=== PATIENT | female | born 1970 | race Caucasian/White ===

== ENCOUNTER 2019-03-28 23:12 | Inpatient (IN) ==
[2019-03-28] MEDS ORDERED: 0.9 % Sodium Chloride 1,000 ML IVC ONE (23:48)
[2019-03-29 00:26] LABS: Bilirubin,Urine Small (Negative); Blood,Urine Large (Negative); Clarity,Urine Clear (Clear); Color,Urine Yellow (Yellow); Glucose,Urine (UA) Normal (Normal); Ketones,Urine Trace mg/dL (Negative); Leukocyte Esterase,Urine Small (Negative); Nitrite,Urine Negative (Negative); PH,Urine 5.5 pH Units (5.0-8.0); Protein,Urine 100 mg/dL (Neg-Trace); Specific Gravity,Urine >= 1.030 (1.010-1.025); Urobilinogen,Urine Normal (Normal)
[2019-03-29 00:44] LABS: Bacteria,Urine Many per hpf (None-Few); Calcium Oxalate Crystals,Urine Present; Mucus,Urine Few (Few); Squamous Epithelial Cell,Urine Many per lpf (None-Few); WBC,Urine 15-30 per hpf (0-3)
[2019-03-29] MEDS ORDERED: cefTRIAXone 1,000 MG in Water for inj. (sterile) 10 ML IVP ONE (00:48)
[2019-03-29 01:22] LABS: Basophils # 0.1 K/mcL (0.0-0.2); Basophils % 0.5 %; Eosinophils % 0.1 %; Hematocrit 44.2 % (35.3-44.9); Hemoglobin 14.3 g/dL (11.5-15.4); Immature Granulocytes % 0.7 % (0-4); Lymphocytes # 1.2 K/mcL (0.6-4.6); Lymphocytes % 12.3 %; Mean Corpuscular HGB Conc 32.4 g/dL (31.6-35.5); Mean Corpuscular Hemoglobin 28.5 pg (28.0-33.3); Mean Corpuscular Volume 88.2 fL (83.0-100.0); Mean Platelet Volume 12.3 fL (9.4-12.4); Monocytes # 1.6 K/mcL (0.0-1.3); Monocytes % 16.5 %; Neutrophils # 6.5 K/mcL (1.6-8.9); Platelet Count 262 K/mcL (140-400); Red Blood Count 5.01 M/mcL (3.82-4.97); Red Cell Distribution Width 16.6 % (11.5-14.5); Segmented Neutrophils % 69.9 %; White Blood Count 9.4 K/mcL (4.3-11.1)
[2019-03-29] MEDS ORDERED: Ipratropium/Albuterol Neb 3 ML IH ONE (02:00)
[2019-03-29 02:47] LABS: Alanine Aminotransferase 24 Units/L (7-52); Albumin/Globulin Ratio 1.3 (1.1-2.2); Alkaline Phosphatase 105 Units/L (34-104); Aspartate Amino Transferase 34 Units/L (13-39); BUN/Creatinine Ratio 16 (6-26); Bilirubin,Total 0.4 mg/dL (0.3-1.0); Blood Urea Nitrogen 16 mg/dL (6-20); Calcium 9.1 mg/dL (8.6-10.3); Carbon Dioxide 29 mEq/L (23-29); Chloride 101 mEq/L (98-107); Globulin 3.1 g/dL (2.4-3.5); Glucose 122 mg/dL (70-105); Osmolality,Calculated 284 (280-300); Potassium 3.2 mEq/L (3.5-5.1); Sodium 136 mEq/L (136-145); Total Protein 7.1 g/dL (6.4-8.9); eGFR For African Americans > 60 (> 60); eGFR For Non-African Americans 57 (> 60)
[2019-03-29] MEDS ORDERED: Azithromycin 500 MG in D5% in Water 250 ML IVPB ONE (03:05)
--- NOTE | 2019-03-29 03:21 | Emergency Department Note ---
Disposition Clinical Impression: UTI (urinary tract infection) Qualifiers: Urinary tract infection type: acute cystitis Hematuria presence: with hematuria Qualified Code(s): N30.01 - Acute cystitis with hematuria Pneumonia Qualifiers: Pneumonia type: due to unspecified organism Laterality: bilateral Lung location: lower lobe of lung Qualified Code(s): J18.1 - Lobar pneumonia, unspecified organism Disposition: Admitted As Inpatient Condition: Good Time of Disposition: 03:30 Fever HPI - General Chief Complaint: ED Extremity Problem,Nontraumatic Stated Complaint: weakness Time Seen by Provider: 03/28/19 23:17 Source: patient, family Mode of arrival: wheelchair Limitations: no limitations Nursing Notes Reviewed: Yes Vital Signs Reviewed: Yes - History of Present Illness HPI Narrative: 48-year-old female presents here with complaints of increased weakness. Patient has history of CVA with left-sided weakness. Patient uses a cane to walk. Patient reports with past 2 days since had a sore throat and dysuria. Patient was seen at [facility] urgent [facility] and diagnosed with strep throat and UTI. Patient was placed on Keflex. Patient did not have a strep culture. The patient would not tell failure and went home and had increased weakness. Patient slammed her chair to the floor due to the weakness. There is no loss of consciousness there is no confusion. Family had a difficult time getting her up. Patient has not had a fever up until the point of arrival in the emergency room. Presently patient reports she has a sore throat, cough with congestion. Patient denies any nausea vomiting. Patient denies any abdominal pain. Pt Subjective Complaint: fever, weakness Onset (ago): Just [employer] Temperature Source: subjective Associated symptoms: Reports: sore throat, cough, dysuria. Denies: rhinorrhea, nasal congestion, abdominal pain, nausea, vomiting Improves with: nothing Worsens with: exertion Treatments prior to arrival fever: antibiotics, other healthcare encounter for this problem - Related Data Home Medications Medication Instructions Recorded Confirmed Albuterol Sulfate [Proair Hfa] 2 puff IH Q4H PRN 05/29/16 03/29/19 Buspirone HCl [Buspar] 10 mg PO TID PRN 05/29/16 03/29/19 Calc/D3/Mag/Zn/[place] 1 tab PO DAILY 05/29/16 03/29/19 [Calcium 600 mg Plus Vit D Tab] Cholecalciferol (Vitamin D3) 1,000 unit PO DAILY 05/29/16 03/29/19 [Vitamin D3] Levothyroxine [Synthroid] 112 mcg PO DAILY 05/29/16 03/29/19 Loratadine [Claritin] 10 mg PO DAILY 05/29/16 03/29/19 Multivitamin [Multivitamins] 1 tab PO DAILY 05/29/16 03/29/19 Nortriptyline HCl 50 mg PO DAILY 05/29/16 03/29/19 Pregabalin [Lyrica] 200 mg PO BID 05/29/16 03/29/19 TraZODone 50 mg PO HS 05/29/16 03/29/19 Aspirin 81 mg PO DAILY 06/14/16 03/29/19 Atorvastatin [Lipitor] 40 mg PO HS 06/14/16 03/29/19 Dabigatran [Pradaxa] 150 mg PO BID 06/14/16 03/29/19 Esomeprazole Magnesium [Nexium] 20 mg PO DAILY 08/31/16 03/29/19 Allergies Allergy/AdvReac Type Severity Reaction Status Date / Time acetaminophen [From Percocet] Allergy See Verified 03/29/19 00:34 Comments latex Allergy See Verified 03/29/19 00:34 Comments oxycodone [From Percocet] Allergy See Verified 03/29/19 00:34 Comments Penicillins Allergy Itching Verified 03/29/19 00:34 adhesive tape AdvReac Rash Verified 03/29/19 04:11 All systems ED: reviewed and negative except as stated. Review of Systems: As Per HPI Constitutional: Reports: fever, chills, weakness ENT ED: Reports: throat pain. Denies: ear pain, congestion Cardiovascular: Denies: chest pain, palpitations Respiratory: Reports: cough, wheezes. Denies: dyspnea Gastrointestinal: Denies: abdominal pain, nausea, vomiting Genitourinary: Reports: urgency, dysuria Musculoskeletal: Denies: back pain, neck pain Integumentary: Denies: rash Neurological: Reports: weakness. Denies: headache, numbness, paresthesias Psychiatric: Denies: anxiety Endocrine: Reports: fatigue Hematological/Lymphatic: Denies: easy bleeding, easy bruising Fever PMH - Past Medical History Medical history: Reports: asthma, cancer, coronary artery disease, CVA, DVT, hyperlipidemia, thyroid disease, TIA, other Surgical history: Reports: hip replacement, splenectomy, other Psychiatric history: Reports: anxiety, depression [employer] history: Reports: no [employer] history LMP comments: post menopausal - Social History Smoking Status: Never smoker Alcohol use: Reports: rarely Drug use: Reports: none Physical Exam - General Limitations: no limitations General appearance: alert, in no apparent distress - Eye Eye exam: Present: PERRL, EOMI, conjunctival injection - ENT ENT exam: mucous membranes dry, TM's normal bilaterally - Expanded ENT Exam Nose exam: rhinorrhea Mouth exam: Present: normal external inspection Teeth exam: Present: normal inspection Throat exam: Present: tonsillar erythema. Absent: tonsillomegaly, tonsillar exudate - Neck Neck exam: Present: normal inspection, full ROM. Absent: lymphadenopathy - Chest Chest inspection: Present: normal inspection, symmetric chest wall rise - Expanded Respiratory Exam Location: wheezes: Left, Right, Lower - Cardiovascular Cardiovascular exam: Present: regular rate, normal rhythm, normal heart sounds - Abdominal Exam Abdominal exam: Present: soft, Non-Tender, normal bowel sounds. Absent: organomegaly - Extremities Exam Extremities exam: Present: normal inspection. Absent: pedal edema - Neurological Exam Neurological exam: Present: alert, oriented X3, other (pt with baselin weakness left side) - Psychiatric Psychiatric exam: Present: normal affect - Skin Skin exam: Present: warm, dry, intact, normal color. Absent: rash Course Course Narrative: Patient given IV fluids and Tylenol for fever control which resolved fever. Patient given Rocephin and Zithromax for UTI and pneumonia. Patient had blood cultures done which are pending. Patient's lactic acid is normal. Patient also given DuoNeb for her mild wheezing. Patient will be admitted to Dr. Escobar for further evaluation and management. Patient is agreeable with this plan. Dr. Lang has accepted patient. Vital Signs Temperature 102.2 F H 03/29/19 00:15 Pulse Rate 106 03/29/19 00:15 Respiratory Rate 20 03/29/19 00:15 Blood Pressure 113/71 03/29/19 00:15 O2 Sat by Pulse Oximetry 99 03/29/19 00:15 Temperature 99.4 F 03/29/19 03:54 Pulse Rate 116 03/29/19 03:54 Respiratory Rate 16 03/29/19 03:54 Blood Pressure 104/64 03/29/19 03:54 O2 Sat by Pulse Oximetry 93 03/29/19 03:54 Oxygen Delivery Oxygen Delivery Room Air Fever - Differential Diagnosis Likely: community acquired pneumonia. Unlikely: pyelonephritis, sepsis - Lab Data Lab results reviewed: Yes I reviewed the patient's lab results. Lab results narrative: Patient's labs normal except for mild hypokalemia. Results constipation. Result diagrams: 03/29/19 01:04 03/29/19 01:04 Lab Results 03/29/19 03/29/19 03/29/19 Range/Units 00:10 01:04 01:04 WBC 9.4 (4.3-11.1) K/mcL RBC 5.01 H (3.82-4.97) M/mcL Hgb 14.3 (11.5-15.4) g/dL Hct 44.2 (35.3-44.9) % MCV 88.2 (83.0-100.0) fL MCH 28.5 (28.0-33.3) pg MCHC 32.4 (31.6-35.5) g/dL RDW 16.6 H (11.5-14.5) % Plt Count 262 (140-400) K/mcL MPV 12.3 (9.4-12.4) fL Immature Gran % 0.7 (0-4) % Seg Neutrophils % 69.9 % Lymphocytes % 12.3 % Monocytes % 16.5 % Eosinophils % 0.1 % Basophils % 0.5 % Neutrophils # 6.5 (1.6-8.9) K/mcL Lymphocytes # 1.2 (0.6-4.6) K/mcL Monocytes # 1.6 H (0.0-1.3) K/mcL Eosinophils # 0.0 (0.0-0.6) K/mcL Basophils # 0.1 (0.0-0.2) K/mcL Sodium 136 (136-145) mEq/L Potassium 3.2 L (3.5-5.1) mEq/L Chloride 101 (98-107) mEq/L Carbon Dioxide 29 (23-29) mEq/L BUN 16 (6-20) mg/dL Creatinine 1.03 (0.60-1.20) mg/dL Est GFR ( Amer) > 60 (> 60) Est GFR (Non-Af Amer) 57 L (> 60) BUN/Creatinine Ratio 16 (6-26) Glucose 122 H (70-105) mg/dL Calculated Osmolality 284 (280-300) Lactic Acid (0.5-2.2) mmol/L Calcium 9.1 (8.6-10.3) mg/dL Total Bilirubin 0.4 (0.3-1.0) mg/dL AST 34 (13-39) Units/L ALT 24 (7-52) Units/L Alkaline Phosphatase 105 H (34-104) Units/L Serum Total Protein 7.1 (6.4-8.9) g/dL Albumin 4.0 (3.5-5.7) g/dL Globulin 3.1 (2.4-3.5) g/dL Albumin/Globulin Ratio 1.3 (1.1-2.2) Ur Specimen Adequacy See below A Urine Color Yellow (Yellow) Urine Clarity Clear (Clear) Urine pH 5.5 (5.0-8.0) pH Units Ur Specific [place] >= 1.030 H (1.010-1.025) Urine Protein 100 H (Neg-Trace) mg/dL Urine Glucose (UA) Normal (Normal) mg/dL Urine Ketones Trace H (Negative) mg/dL Urine Blood Large H (Negative) Urine Nitrite Negative (Negative) Urine Bilirubin Small H (Negative) Urine Urobilinogen Normal (Normal) mg/dL Ur Leukocyte Esterase Small H (Negative) Urine Microscopic RBC 5-15 H (0-3) per hpf Urine Microscopic WBC 15-30 H (0-3) per hpf Ur Squamous Epith Cells Many H (None-Few) per lpf Calcium Oxalate Crystal Present Urine Bacteria Many H (None-Few) per hpf Urine Mucus Few (Few) 03/29/19 Range/Units 01:04 WBC (4.3-11.1) K/mcL RBC (3.82-4.97) M/mcL Hgb (11.5-15.4) g/dL Hct (35.3-44.9) % MCV (83.0-100.0) fL MCH (28.0-33.3) pg MCHC (31.6-35.5) g/dL RDW (11.5-14.5) % Plt Count (140-400) K/mcL MPV (9.4-12.4) fL Immature Gran % (0-4) % Seg Neutrophils % % Lymphocytes % % Monocytes % % Eosinophils % % Basophils % % Neutrophils # (1.6-8.9) K/mcL Lymphocytes # (0.6-4.6) K/mcL Monocytes # (0.0-1.3) K/mcL Eosinophils # (0.0-0.6) K/mcL Basophils # (0.0-0.2) K/mcL Sodium (136-145) mEq/L Potassium (3.5-5.1) mEq/L Chloride (98-107) mEq/L Carbon Dioxide (23-29) mEq/L BUN (6-20) mg/dL Creatinine (0.60-1.20) mg/dL Est GFR ( Amer) (> 60) Est GFR (Non-Af Amer) (> 60) BUN/Creatinine Ratio (6-26) Glucose (70-105) mg/dL Calculated Osmolality (280-300) Lactic Acid 1.5 (0.5-2.2) mmol/L Calcium (8.6-10.3) mg/dL Total Bilirubin (0.3-1.0) mg/dL AST (13-39) Units/L ALT (7-52) Units/L Alkaline Phosphatase (34-104) Units/L Serum Total Protein (6.4-8.9) g/dL Albumin (3.5-5.7) g/dL Globulin (2.4-3.5) g/dL Albumin/Globulin Ratio (1.1-2.2) Ur Specimen Adequacy Urine Color (Yellow) Urine Clarity (Clear) Urine pH (5.0-8.0) pH Units Ur Specific [place] (1.010-1.025) Urine Protein (Neg-Trace) mg/dL Urine Glucose (UA) (Normal) mg/dL Urine Ketones (Negative) mg/dL Urine Blood (Negative) Urine Nitrite (Negative) Urine Bilirubin (Negative) Urine Urobilinogen (Normal) mg/dL Ur Leukocyte Esterase (Negative) Urine Microscopic RBC (0-3) per hpf Urine Microscopic WBC (0-3) per hpf Ur Squamous Epith Cells (None-Few) per lpf Calcium Oxalate Crystal Urine Bacteria (None-Few) per hpf Urine Mucus (Few) - Radiology Data Radiology results reviewed: Yes I reviewed the patient's radiology results. Patient's chest x-ray was interpreted by the radiologist and reviewed by me as positive for mild bibasilar infiltrates. This is discussed with patient. - EKG Data EKG attestation: Yes I reviewed and interpreted this EKG. EKG shows normal: sinus rhythm Rate: tachycardia Rhythm: NSR, PVC's [place]/QRS: RBBB When compared to previous EKG there are: previous EKG unavailable Interpretation: no acute changes Sepsis Event Note - Evaluation Sepsis Screen: No Definite Risk Current Stage of Suspected Sepsis: ruled out Reason for ruling out sepsis: no end organ dysfunction Possible Source of Sepsis: genitourinary - Focused Exam Date of Encounter: 03/29/19 Time of Encounter: 00:15 Vital Signs: Vital Signs Temp Pulse Resp BP Pulse Ox 03/29/19 02:25 98.9 F 124 133/80 92 03/29/19 00:15 102.2 F H 106 20 113/71 99 Respiratory Exam: Present: wheezes Cardiovascular Exam: Present: RRR Capillary Refill: < 2 seconds Peripheral Pulse Strength: 3+ normal Peripheral Pulse Location: Radial Skin Exam: normal turgor - Bedside Monitoring Bedside Ultrasound Performed: No Passive Leg raise/fluid bolus: not performed
[2019-03-29] MEDS ORDERED: Naloxone 0.4 MG/ML INJ IVP PRN (03:26)
[2019-03-29] MEDS ORDERED: Ondansetron ODT 4 MG TAB.RAPDIS SL PRN (03:26)
[2019-03-29] MEDS ORDERED: Azithromycin 500 MG in D5% in Water 250 ML IVPB SCH (04:00)
[2019-03-29] MEDS: 0.9 % Sodium Chloride 1,000 ML IVC SCH ×3 (04:38→12:48)
[2019-03-29] MEDS: Ipratropium/Albuterol Neb 3 ML IH SCH ×4 (05:43→23:11)
[2019-03-29] MEDS: Cholecalciferol (D-3) 1,000 UNIT (25MCG) TABLET PO SCH (08:43)
[2019-03-29] MEDS: Multivit/Ca/Min/Fe/FA 1 TAB TABLET PO SCH (08:43)
[2019-03-29] MEDS: *HR* Dabigatran 75 MG CAPSULE PO SCH ×2 (08:44→20:17)
[2019-03-29] MEDS: Pregabalin 50 MG CAPSULE PO SCH ×2 (08:44→20:18)
[2019-03-29] MEDS: Loratadine 10 MG TABLET PO SCH (08:44)
[2019-03-29] MEDS: Aspirin 81 MG TAB.CHEW PO SCH (08:44)
--- NOTE | 2019-03-29 13:59 | Internal Med History&Physical ---
Date of Encounter: 03/30/19 Time of Encounter: 13:07 Assessment and Plan (1) Bilateral pneumonia Current visit: Yes Status: Acute History of fever, increased weakness, chest x-ray with bibasilar infiltrates all of which are consistent with bilateral pneumonia. Blood cultures have been drawn, Zithromax and Rocephin have been started, IV fluids, nebulizer treatments for wheezing. Patient is feeling better. Patient is immunocompromised because of splenectomy because of prior history of lymphoma. Continue current regimen Qualifiers: Pneumonia type: due to unspecified organism Lung location: lower lobe of lung Qualified Code(s): J18.1 - Lobar pneumonia, unspecified organism (2) UTI (urinary tract infection) Current visit: Yes Status: Acute Urinalysis consistent with UTI, was told she had a UTI at urgent care and was started on Keflex. She has had no urinary symptoms. Culture has been sent. She is already started on antibiotics due to the pneumonia. Qualifiers: Urinary tract infection type: acute cystitis Hematuria presence: with hematuria Qualified Code(s): N30.01 - Acute cystitis with hematuria (3) CVA, old, hemiparesis Current visit: Yes Status: Chronic Previous CVA with left any plegia secondary to embolic event across the PFO and into the right cerebral circulation. PFO has been closed. She is chronically anticoagulated with Pradaxa. No recurrence of CVA noted. However, mother and others have noted that she has had increased difficulty with ambulation recently. We will initiate PT and OT evaluations. If she has new residual deficit we will plan a CT. Chronically she uses a cane when she is out of the house, uses a hemiwalker or wheelchair went in the house (uses a wheelchair when she is cooking or doing laundry). She has 4 steps to get into her one-story home, however the last is a tall step over a threshold which gives her difficulties. She does have a hand rail. (4) Acquired immunocompromised state Current visit: Yes Status: Chronic Prior history of lymphoma and is status post splenectomy. She is not sure of her immunization status and I will check at the office. (5) Pharyngitis Current visit: Yes Status: Acute History of pharyngitis for a few days. Was told by urgent care "this is strep throat". No culture obtained. Keflex was started. Exam is basically normal today. I did send off a culture swab for better documentation though I anticipa te it will be negative. Qualifiers: Pharyngitis/tonsillitis etiology: unspecified etiology Qualified Code(s): J02.9 - Acute pharyngitis, unspecified (6) DVT prophylaxis Current visit: Yes Status: Acute Chronically she is [facility] Internal Medicine - H&P: HPI Chief complaint: I was sick and weak and have pneumonia Admitted From: Emergency Dept Plans for Post Hospital Care: Home History of present illness: Ms. Castillo is a 48 year old female with known history of embolic CVA with left hemiplegia, immunocompromised due to splenectomy from Hodgkin's lymphoma was evaluated in the emergency room in the middle of the night with a history of fever 102, weakness, cough. The past couple of weeks she has had difficulties with maneuvering to and from the chairs. She been more weak than usual over the past week. She said she was "bad" Saturday night, night prior to admission when she said at home she could not get out of her wheelchair for a few hours because of weakness. She went to [facility] yesterday and was told she had a "strep infection", no culture obtained and she was placed on Keflex. Also told that she had a "UTI" though she had no urinary symptoms. She took at least 2 doses of Keflex. Saturday afternoon returning to her home she had difficulties getting up the stairs, particularly the last step which is extra tall and "my knee locked up". When she returned from the fasting she also difficulties getting up the stairs into her home. She did up having to sit on the floor because of weakness. She started to have a bit of a cough as well. In the emergency room she had temperature 102, started having more severe cough and wheezing was noted. She denied any headache, blurred vision, cardiac chest pain, GI symptoms or urinary symptoms. In the ER he was noted she had the fever, by basilar infiltrates on chest x-ray, mild hypokalemia, urinalysis consistent with UTI and pulmonary congestion and wheezing. Cultures were obtained of blood, breathing treatments were helpful, but having failed outpatient treatment it was recommended she be admitted to the hospital. This morning, after IV fluids and antibiotics she said she is feeling better. The respiratory treatments are still helpful and she feels better with respirations. She still has a sore throat particularly when she coughs. Past Med Surg Social Fam HX - Past Medical History Medical history: asthma, cancer (Hodgkin's lymphoma), CVA (CVA secondary to DVT with embolism across a PFO into the right side of the brain with left hemiplegia. She had intracranial swelling and craniotomy), DVT, GERD, hyperlipidemia (Actually lipids are likely normal but statin added because of CVA), thyroid disease, TIA, other Additional medical history: HODGKINS LYMPHOMA, SEASONAL ALLERGIES, SKIN CANCER Psychiatric history: anxiety, depression - Past Surgical History Surgical History: splenectomy, other Additional surgical history: heart cath no stent, PARTIAL LT HIP REPLACEMENT, CRANIOTOMY, LT WRIST SURG, PFO closure - Social History Smoking Status: Former smoker (Quit smoking in 2005) Smokeless Tobacco Status: No Alcohol use: rarely Drug use: none Current living situation: Home - Independent Activity Level: Uses cane/walker Recent Out of Country Travel Within the Last 8 Weeks: No Exposure or Possible Exposure to Illness During Travel: No - Family History Father Living Status: Age at : 73 Cause of : Presumed cardiac etiology, had history of alcoholic liver failure Hx Family Cardiac Disorders: Yes Mother Living Status: Still Living Hx Family Cardiac Disorders: Yes (Hypertension) Hx Family Cancer: Yes (Maternal grandparents at age 60 and late 70s ) Internal Medicine - H&P: Meds Albuterol Sulfate [Proair Hfa] 2 puff IH Q4H PRN 05/29/16 [History] Buspirone HCl [Buspar] 10 mg PO TID PRN 05/29/16 [History] Calc/D3/Mag/Zn/[place] [Calcium 600 mg Plus Vit D Tab] 1 tab PO DAILY 05/29/16 [History] Cholecalciferol (Vitamin D3) [Vitamin D3] 1,000 unit PO DAILY 05/29/16 [History] Levothyroxine [Synthroid] 112 mcg PO DAILY 05/29/16 [History] Loratadine [Claritin] 10 mg PO DAILY 05/29/16 [History] Multivitamin [Multivitamins] 1 tab PO DAILY 05/29/16 [History] Nortriptyline HCl 50 mg PO DAILY 05/29/16 [History] Pregabalin [Lyrica] 200 mg PO BID 05/29/16 [History] TraZODone 50 mg PO HS 05/29/16 [History] Aspirin 81 mg PO DAILY 06/14/16 [History] Atorvastatin [Lipitor] 40 mg PO HS 06/14/16 [History] Dabigatran [Pradaxa] 150 mg PO BID 06/14/16 [History] Esomeprazole Magnesium [Nexium] 20 mg PO DAILY 08/31/16 [History] Allergy/AdvReac Type Severity Reaction Status Date / Time acetaminophen [From Percocet] Allergy See Verified 03/29/19 00:34 Comments latex Allergy See Verified 03/29/19 00:34 Comments oxycodone [From Percocet] Allergy See Verified 03/29/19 00:34 Comments Penicillins Allergy Itching Verified 03/29/19 00:34 adhesive tape AdvReac Rash Verified 03/29/19 04:11 - Constitutional Constitutional: fever(s), falls (She had to sit down on the floor she could not get up at home), lethargy, weakness, no anorexia, no chills, no night sweats - EENT Additional comments: She has chronic field cuts in her vision from previous CVA. Ears: no ear discharge, no ear pain Nose, mouth and throat: hoarseness (Started getting hoarseness for the past week), sore throat, no dental pain, no sinus pressure, no throat swelling - Cardiovascular Cardiovascular ROS IM: dyspnea (She noted to have some wheezing), no chest pain, no diaphoresis, no irregular heart rhythm, no palpitations, no syncope - Respiratory Respiratory: cough (Generally without sputum production), wheezing, no hemoptysis, no pain on inspiration, no excessive phlegm production, no change in phlegm color - Gastrointestinal Gastrointestinal: no abdominal pain, no constipation, no diarrhea, no hematemesis, no loose stools, no melena, no vomiting - Genitourinary Genitourinary: no difficulty voiding, no dysuria, no urinary frequency, no urinary incontinence, no urinary urgency Additional comments: Patient has an IUD. - Musculoskeletal Additional comments: Left hemiplegia from previous CVA. She has left foot drop and wears a posterior splint. She has contractures of the left hand. She uses a cane without a house, uses a hemiwalker or wheelchair in the home. - Integumentary Integumentary IM: no new lesions, no rash - Neurological Neurological ROS: weakness, no confusion, no tremor(s) Additional comments: She chronically has left hemiplegia from previous CVA. She has left facial droop but only rare occasion will she have some drooling on the left side. No problems with dysphagia or odynophagia. She has left lower from any weakness and left foot drop and wears a posterior splint. Left upper extremity weakness particular biceps and has mild contractures of left hand. - Psychiatric Psychiatric: anxiety, depression - Constitutional Vitals: Temp Pulse Resp BP Pulse Ox 99.2 F 102 18 134/77 92 03/29/19 11:00 03/29/19 11:00 03/29/19 11:00 03/29/19 11:00 03/29/19 11:00 General appearance: Present: A&O X 3, no acute distress, answers questions appropriately - Head Additional comments: Previous craniotomy - Eye Eye exam: Present: EOMI, PERRL. Absent: scleral icterus Additional comments: I did not do visual field cuts testing - ENT ENT exam: Present: mucous membranes moist, normal exam, normal oropharynx Additional comments: Posterior pharynx is not reddened. Tonsils are not enlarged. There appears to be tonsillar stone on the right side. - Neck Neck exam general surgery: Absent: lymphadenopathy, tenderness, nuchal rigidity - Respiratory Additional comments: Rhonchi and crackles heard in the right mid and lower lung field. No breath sounds are extremely left base, left mid lung field shows rhonchi. No wheezing currently. - Cardiovascular Cardiovascular exam: Present: RRR, +S1, +S2 Additional comments: Occasional midsystolic click is heard. No obvious murmur heard. - GI/Abdominal GI/Abdominal exam: Present: soft. Absent: tenderness - Extremities Exam Extremities exam: Absent: calf tenderness, pedal edema, tenderness Additional comments: See neuro examination - Neurological Exam Additional comments: Cranial nerves II through XII show left facial hemiplegia with decreased nasolabial full. Gaze is conjugate. I did not do visual field cut testing. Tongue is midline. Hypopharynx is normal. Speech is normal. I did not do a full Mini-Mental status examination. History of present illness appeared to be accurate according to mother who is present. Left upper extremity shows 4-5 strength in the left biceps. Triceps is normal. Mild contractures of the left hand. No skin breakdown noted. Left lower extremity shows foot drop and tight Achilles tendon and inability for me to place her foot in neutral 90 degree position. Hip flexors appear to be normal compared opposite side. Quads are 4/ 5 in strength. - Psychiatric Psychiatric exam: Present: normal affect. Absent: suicidal ideation - Skin Skin exam: Absent: rash Internal Med - H&P Results - Labs CBC & Chem 7: 03/29/19 01:04 03/29/19 01:04 Labs: Short CBC 03/29/19 Range/Units 01:04 WBC 9.4 (4.3-11.1) K/mcL Hgb 14.3 (11.5-15.4) g/dL Hct 44.2 (35.3-44.9) % Plt Count 262 (140-400) K/mcL Neutrophils # 6.5 (1.6-8.9) K/mcL BMP 03/29/19 01:04 Sodium 136 Potassium 3.2 L Chloride 101 Carbon Dioxide 29 BUN 16 Creatinine 1.03 Glucose 122 H Calcium 9.1 Liver Function 03/29/19 Range/Units 01:04 Total Bilirubin 0.4 (0.3-1.0) mg/dL AST 34 (13-39) Units/L ALT 24 (7-52) Units/L Alkaline Phosphatase 105 H (34-104) Units/L Albumin 4.0 (3.5-5.7) g/dL Urine 03/29/19 Range/Units 00:10 Urine Color Yellow (Yellow) Urine Clarity Clear (Clear) Urine pH 5.5 (5.0-8.0) pH Units Ur Specific [place] >= 1.030 H (1.010-1.025) Urine Protein 100 H (Neg-Trace) mg/dL Urine Glucose (UA) Normal (Normal) mg/dL Labs have been reviewed. Potassium low at 3.2. I will also count is normal. Urinalysis is consistent with UTI. Culture order has been sent - Impressions ITS Impressions Chest X-Ray 03/29/19 02:00 IMPRESSION: Low lung volumes. Mild bibasilar infiltrates. D/ / Mackenzie Mcconnell MD / Mackenzie Mcconnell MD Interpreting Provider: Mackenzie Mcconnell MD - Diagnostic Studies Chest x-ray Additional comments: Chest x-ray shows bibasilar infiltrates consistent with pneumonia - VTE Reasons for not Prescribing Prophylaxis: Not indicated-Anticoagulated or INR therapeutic
[2019-03-29] MEDS: Acetaminophen 325 MG TABLET PO PRN (15:36)
[2019-03-29] MEDS: cefTRIAXone 1,000 MG in Water for inj. (sterile) 10 ML IVP SCH (18:26)
[2019-03-29] MEDS ORDERED: traZODone 50 MG TABLET PO SCH (21:00)
[2019-03-29] MEDS: 0.9 % Sodium Chloride 1,000 ML IV SCH (21:19)
[2019-03-29 21:38] LABS: Adenovirus Not Detected (Not Detect); Coronavirus 229E Not Detected (Not Detect); Coronavirus HKU1 Not Detected (Not Detect); Coronavirus NL63 Not Detected (Not Detect); Coronavirus OC43 Not Detected (Not Detect); Human Metapneumovirus Not Detected (Not Detect); Human Rhinovirus/Enterovirus Not Detected (Not Detect)
[2019-03-29 21:40] LABS: Bordetella Pertussis Not Detected (Not Detect); Chlamydophila pneumoniae Not Detected (Not Detect); Influenza A Subtype 2009 H1 Not Detected (Not Detect); Influenza A Untypeable Not Detected (Not Detect); Influenza B Not Detected (Not Detect); Mycoplasma pneumoniae Not Detected (Not Detect); Parainfluenza Virus 1 Not Detected (Not Detect); Parainfluenza Virus 2 Not Detected (Not Detect); Parainfluenza Virus 3 Not Detected (Not Detect); Parainfluenza Virus 4 Not Detected (Not Detect); Respiratory Syncytial Virus Not Detected (Not Detect)
--- NOTE | 2019-03-29 21:51 | Event Note ---
Date of Encounter: 03/29/19 Time of Encounter: 21:49 respiratory testing showed positive for influenza A. Willl start Tamiflu. Continue antibiotics until cultures are neg, immmunocompromised due to asplenia.
[2019-03-30] MEDS: Azithromycin 500 MG in D5% in Water 250 ML IVPB SCH (04:55)
[2019-03-30] MEDS: Acetaminophen 325 MG TABLET PO PRN ×4 (05:03→21:32)
[2019-03-30 05:18] LABS: mecA Methicillin-Resist Gene Not Detected (Not Detect)
[2019-03-30 05:19] LABS: Acinetobacter baumannii by PCR Not Detected (Not Detect); Candida albicans by PCR Not Detected (Not Detect); Candida glabrata by PCR Not Detected (Not Detect); Candida krusei by PCR Not Detected (Not Detect); Candida parapsilosis by PCR Not Detected (Not Detect); Candida tropicalis by PCR Not Detected (Not Detect); Enterobacter cloacae Cmplx PCR Not Detected (Not Detect); Enterobacteriaceae by PCR Not Detected (Not Detect); Enterococcus by PCR Not Detected (Not Detect); Escherichia coli by PCR Not Detected (Not Detect); Klebsiella oxytoca by PCR Not Detected (Not Detect); Klebsiella pneumoniae by PCR Not Detected (Not Detect); Proteus by PCR Not Detected (Not Detect); Pseudomonas aeruginosa by PCR Not Detected (Not Detect); Serratia marcescens by PCR Not Detected (Not Detect); Staphylococcus aureus by PCR Not Detected (Not Detect); Staphylococcus by PCR DETECTED (Not Detect); Streptococcus agalactiae(B)PCR Not Detected (Not Detect); Streptococcus by PCR Not Detected (Not Detect); Streptococcus pneumoniae PCR Not Detected (Not Detect); Streptococcus pyogenes (A) PCR Not Detected (Not Detect)
[2019-03-30] MEDS: Ipratropium/Albuterol Neb 3 ML IH SCH ×4 (05:22→22:41)
[2019-03-30] MEDS: 0.9 % Sodium Chloride 1,000 ML IV SCH ×2 (05:55→16:06)
[2019-03-30 07:09] LABS: Basophils % 0.4 %; Eosinophils # 0.1 K/mcL (0.0-0.6); Eosinophils % 1.7 %; Hematocrit 40.2 % (35.3-44.9); Hemoglobin 12.9 g/dL (11.5-15.4); Immature Granulocytes % 0.1 % (0-4); Lymphocytes # 2.3 K/mcL (0.6-4.6); Lymphocytes % 29.9 %; Mean Corpuscular HGB Conc 32.1 g/dL (31.6-35.5); Mean Corpuscular Hemoglobin 28.5 pg (28.0-33.3); Mean Corpuscular Volume 88.9 fL (83.0-100.0); Mean Platelet Volume 11.8 fL (9.4-12.4); Monocytes # 1.3 K/mcL (0.0-1.3); Monocytes % 16.4 %; Neutrophils # 3.9 K/mcL (1.6-8.9); Platelet Count 230 K/mcL (140-400); Red Blood Count 4.52 M/mcL (3.82-4.97); Segmented Neutrophils % 51.5 %; White Blood Count 7.7 K/mcL (4.3-11.1)
--- NOTE | 2019-03-30 07:21 | Internal Med Progress Note ---
Date of Encounter: 03/30/19 Time of Encounter: 07:16 - Assessment and plan (1) Bilateral pneumonia Current Visit: Yes Status: Acute Assessment and plan: Chest x-ray showing bibasilar infiltrates, now on auscultation rhonchi and c rackles heard in all lung enrique. Her fever is gone, no elevated white blood cell count and she is feeling better. This may be things "loosening up" causing increased congestion. Chest x-ray will be done. We will discontinue her IV fluids. Cough syrup as needed. She may indeed have influenza type A as well as bacterial pneumonia. We will continue the Rocephin and Zithromax, Tamiflu was added, and she has one blood culture out of 2 positive for gram-positive cocci, that may be staph contaminant versus true bacterial bacteremia. She will be switched from observation to full admission. Qualifiers: Pneumonia type: due to unspecified organism Lung location: lower lobe of lung Qualified Code(s): J18.1 - Lobar pneumonia, unspecified organism (2) Influenza due to influenza virus, type A, human Current Visit: Yes Status: Acute Assessment and plan: Respiratory panel is positive for influenza type A. Tamiflu was started. Surprising that it is occurring at this time of the year. She may have a secondary bacterial pneumonia by auscultation and findings on chest x-ray. (3) Positive blood culture Current Visit: Yes Status: Acute Assessment and plan: This morning I was called on 1 out of 2 culture of blood positive for "gram- positive cocci". Since only one is positive, this may be skin contaminant. We will await final results. Continue the antibiotics. (4) UTI (urinary tract infection) Current Visit: Yes Status: Acute Assessment and plan: Urine culture report is pending. Antibiotics have already been started. One out of 2 blood cultures positive for gram-positive cocci. Qualifiers: Urinary tract infection type: acute cystitis Hematuria presence: with hematuria Qualified Code(s): N30.01 - Acute cystitis with hematuria (5) CVA, old, hemiparesis Current Visit: Yes Status: Chronic (6) Acquired immunocompromised state Current Visit: Yes Status: Chronic (7) Pharyngitis Current Visit: Yes Status: Acute Qualifiers: Pharyngitis/tonsillitis etiology: unspecified etiology Qualified Code(s): J02.9 - Acute pharyngitis, unspecified (8) DVT prophylaxis Current Visit: Yes Status: Acute - Subjective Interval history: Patient states that she feels better. She has not had fever or chills since starting the antibiotic. Her cough is dry, but was worse last night than before. She request a cough syrup. She has been getting to and from the toilet with her hemiwalker and assistance. She denies any cardiac type chest pain. No GI symptoms. She is eating better. - Constitutional Vitals: Temp Pulse Resp BP Pulse Ox 98.4 F 108 18 138/87 95 03/30/19 03:48 03/30/19 03:48 03/30/19 05:23 03/30/19 03:48 03/30/19 05:23 General appearance: Present: A&O X 3, no acute distress, answers questions appropriately - Respiratory Additional comments: Coarse rhonchi in all lung enrique. Crackles in the bases. Does not clear with cough. No respiratory distress. No audible wheezing - Cardiovascular Cardiovascular exam: Present: RRR, +S1, +S2 - Extremities Exam Extremities exam: Absent: calf tenderness, pedal edema Internal Medicine: Result - Labs CBC & Chem 7: 03/29/19 01:04 03/29/19 01:04 Labs: Morning lab work is pending. However, respiratory panel was positive for influenza type A as well as staph species. - VTE Reasons for not Prescribing Prophylaxis: Not indicated-Anticoagulated or INR therapeutic Consult Discharge Plan - Plan Referrals: Rosa Thomas, [employer] [Primary Care Provider] -
[2019-03-30 08:04] LABS: BUN/Creatinine Ratio 12 (6-26); Blood Urea Nitrogen 7 mg/dL (6-20); Carbon Dioxide 26 mEq/L (23-29); Chloride 107 mEq/L (98-107); Glucose 138 mg/dL (70-105); Osmolality,Calculated 290 (280-300); Potassium 3.5 mEq/L (3.5-5.1); Sodium 140 mEq/L (136-145); eGFR For African Americans > 60 (> 60); eGFR For Non-African Americans > 60 (> 60)
[2019-03-30] MEDS: Cholecalciferol (D-3) 1,000 UNIT (25MCG) TABLET PO SCH (08:34)
[2019-03-30] MEDS: *HR* Dabigatran 75 MG CAPSULE PO SCH ×2 (08:34→21:36)
[2019-03-30] MEDS: Pregabalin 50 MG CAPSULE PO SCH ×2 (08:34→21:33)
[2019-03-30] MEDS: Loratadine 10 MG TABLET PO SCH (08:34)
[2019-03-30] MEDS: Multivit/Ca/Min/Fe/FA 1 TAB TABLET PO SCH (08:35)
[2019-03-30] MEDS: Aspirin 81 MG TAB.CHEW PO SCH (08:35)
[2019-03-30] MEDS: cefTRIAXone 1,000 MG in Water for inj. (sterile) 10 ML IVP SCH (17:55)
[2019-03-30] MEDS: traZODone 50 MG TABLET PO SCH (21:37)
[2019-03-31] MEDS: 0.9 % Sodium Chloride 1,000 ML IV SCH ×2 (00:34→10:56)
[2019-03-31] MEDS: Azithromycin 500 MG in D5% in Water 250 ML IVPB SCH (04:53)
[2019-03-31] MEDS: Ipratropium/Albuterol Neb 3 ML IH SCH ×4 (05:35→22:04)
[2019-03-31 06:03] LABS: Basophils % 0.4 %; Eosinophils # 0.2 K/mcL (0.0-0.6); Eosinophils % 2.6 %; Hematocrit 40.7 % (35.3-44.9); Hemoglobin 13.2 g/dL (11.5-15.4); Immature Granulocytes % 0.1 % (0-4); Lymphocytes # 2.9 K/mcL (0.6-4.6); Lymphocytes % 42.2 %; Mean Corpuscular HGB Conc 32.4 g/dL (31.6-35.5); Mean Corpuscular Hemoglobin 28.6 pg (28.0-33.3); Mean Corpuscular Volume 88.3 fL (83.0-100.0); Mean Platelet Volume 11.9 fL (9.4-12.4); Monocytes # 0.7 K/mcL (0.0-1.3); Monocytes % 10.5 %; Neutrophils # 3.1 K/mcL (1.6-8.9); Platelet Count 239 K/mcL (140-400); Red Blood Count 4.61 M/mcL (3.82-4.97); Red Cell Distribution Width 17.2 % (11.5-14.5); Segmented Neutrophils % 44.2 %; White Blood Count 6.9 K/mcL (4.3-11.1)
[2019-03-31 06:16] LABS: BUN/Creatinine Ratio 8 (6-26); Blood Urea Nitrogen 5 mg/dL (6-20); Calcium 8.1 mg/dL (8.6-10.3); Carbon Dioxide 29 mEq/L (23-29); Chloride 108 mEq/L (98-107); Glucose 156 mg/dL (70-105); Osmolality,Calculated 292 (280-300); Potassium 3.3 mEq/L (3.5-5.1); Sodium 141 mEq/L (136-145); eGFR For African Americans > 60 (> 60); eGFR For Non-African Americans > 60 (> 60)
[2019-03-31] MEDS: Multivit/Ca/Min/Fe/FA 1 TAB TABLET PO SCH (08:11)
[2019-03-31] MEDS: Pregabalin 50 MG CAPSULE PO SCH ×2 (08:12→22:22)
[2019-03-31] MEDS: Cholecalciferol (D-3) 1,000 UNIT (25MCG) TABLET PO SCH (08:12)
[2019-03-31] MEDS: Aspirin 81 MG TAB.CHEW PO SCH (08:12)
[2019-03-31] MEDS: Acetaminophen 325 MG TABLET PO PRN ×2 (08:12→13:42)
[2019-03-31] MEDS: *HR* Dabigatran 75 MG CAPSULE PO SCH ×2 (08:12→22:21)
[2019-03-31] MEDS: Loratadine 10 MG TABLET PO SCH (08:13)
--- NOTE | 2019-03-31 10:45 | Internal Med Progress Note ---
Date of Encounter: 03/31/19 Time of Encounter: 10:43 - Assessment and plan (1) Bilateral pneumonia Current Visit: Yes Status: Acute Assessment and plan: Radiographic improvement of her pneumonia. By auscultation her lungs are ba sically clear, marked improvement from yesterday. No hypoxia. Continue the antibiotics and Tamiflu. One blood culture is growing a staph species. Likely skin contaminant. The other is still negative. Qualifiers: Pneumonia type: due to unspecified organism Lung location: lower lobe of lung Qualified Code(s): J18.1 - Lobar pneumonia, unspecified organism (2) Influenza due to influenza virus, type A, human Current Visit: Yes Status: Acute Assessment and plan: Afebrile. She feels better. Lungs are clear. Continue Tamiflu. (3) UTI (urinary tract infection) Current Visit: Yes Status: Ruled-out Assessment and plan: Urine culture is negative. Qualifiers: Urinary tract infection type: acute cystitis Hematuria presence: with hematuria Qualified Code(s): N30.01 - Acute cystitis with hematuria (4) CVA, old, hemiparesis Current Visit: Yes Status: Chronic Assessment and plan: She is advancing with PT and OT and regaining her ADLs. (5) Acquired immunocompromised state Current Visit: Yes Status: Chronic Assessment and plan: no fever. White blood cell count is normal. (6) Pharyngitis Current Visit: Yes Status: Resolved Assessment and plan: Throat culture is still negative Qualifiers: Pharyngitis/tonsillitis etiology: unspecified etiology Qualified Code(s): J02.9 - Acute pharyngitis, unspecified (7) DVT prophylaxis Current Visit: Yes Status: Acute Assessment and plan: Continues with long-term anticoagulation - Subjective Interval history: Patient states that she feels much better. She has been ambulating with assistance in the hallway. She took a shower this morning. She had a short episode where she felt a bit lightheaded, her blood pressure is now normal and she has recuperated. Denies a cardiac type chest pain or palpitations. Denies any new respiratory problems. She is eating better. - Constitutional Vitals: Temp Pulse Resp BP Pulse Ox 98.0 F 106 18 115/69 93 03/31/19 04:00 03/31/19 10:38 03/31/19 10:38 03/31/19 10:38 03/31/19 10:38 General appearance: Present: A&O X 3, no acute distress, answers questions appropriately Exam: She looks markedly improved today. She is sitting at the edge the bed and in no distress. No coughing. No respiratory signs. - Respiratory Additional comments: Only rare crackles in the bases today, markedly improved. - Cardiovascular Cardiovascular exam: Present: distant heart sounds, RRR, +S1, +S2 - Extremities Exam Additional comments: No edema. She has a brace on her left lower extremity. Internal Medicine: Result - Labs CBC & Chem 7: 03/31/19 05:45 03/31/19 05:45 Labs: Short CBC 03/31/19 Range/Units 05:45 WBC 6.9 (4.3-11.1) K/mcL Hgb 13.2 (11.5-15.4) g/dL Hct 40.7 (35.3-44.9) % Plt Count 239 (140-400) K/mcL Neutrophils # 3.1 (1.6-8.9) K/mcL BMP 03/31/19 05:45 Sodium 141 Potassium 3.3 L Chloride 108 H Carbon Dioxide 29 BUN 5 L Creatinine 0.62 Glucose 156 H Calcium 8.1 L Labs have been reviewed. Mild hypokalemia. Likely from her IV fluids. - Impressions Impressions Chest X-Ray 03/30/19 07:30 IMPRESSION: Improving patchy airspace disease in both lung bases suggesting resolving pneumonia. Recommend follow-up to complete resolution. D/ / 03/30/2019 09:30:21 Fer Stevens MD / vi Interpreting Provider: Fer Stevens MD - Diagnostic Studies Chest x-ray Additional comments: Chest x-ray is showing improvement of her infiltrates. - VTE Reasons for not Prescribing Prophylaxis: Not indicated-Anticoagulated or INR therapeutic Consult Discharge Plan - Plan Referrals: Rosa Thomas, [employer] WORKER [Primary Care Provider] -
[2019-03-31] MEDS ORDERED: Saline Nasal Spray 44 ML BOTTLE NS PRN (15:17)
[2019-03-31] MEDS: cefTRIAXone 1,000 MG in Water for inj. (sterile) 10 ML IVP SCH (17:59)
[2019-03-31] MEDS: traZODone 50 MG TABLET PO SCH (22:23)
[2019-04-01] MEDS: Azithromycin 500 MG in D5% in Water 250 ML IVPB SCH (04:30)
[2019-04-01] MEDS: Ipratropium/Albuterol Neb 3 ML IH SCH ×2 (06:25→09:00)
[2019-04-01] MEDS: Pregabalin 50 MG CAPSULE PO SCH ×2 (09:04→21:02)
[2019-04-01] MEDS: *HR* Dabigatran 75 MG CAPSULE PO SCH ×2 (09:04→21:01)
[2019-04-01] MEDS: Cholecalciferol (D-3) 1,000 UNIT (25MCG) TABLET PO SCH (09:04)
[2019-04-01] MEDS: Loratadine 10 MG TABLET PO SCH (09:05)
[2019-04-01] MEDS: Aspirin 81 MG TAB.CHEW PO SCH (09:05)
[2019-04-01] MEDS: Multivit/Ca/Min/Fe/FA 1 TAB TABLET PO SCH (09:05)
[2019-04-01] MEDS: Acetaminophen 325 MG TABLET PO PRN ×2 (09:05→21:04)
[2019-04-01] MEDS ORDERED: Ipratropium/Albuterol Neb 3 ML IH PRN (10:24)
--- NOTE | 2019-04-01 10:31 | Internal Med Progress Note ---
Date of Encounter: 04/01/19 Time of Encounter: 10:28 - Assessment and plan (1) Bilateral pneumonia Current Visit: Yes Status: Acute Assessment and plan: Clinically, subjectively, and radiographically her bilateral pneumonia is sh owing much improvement. We will continue the antibiotics to cover presumed bacterial infection. She was also positive for influenza A and is taking Tamiflu. She has had no fever since her antibiotics were started. One of the 2 blood cultures positive for Staphylococcus hemolyticus, skin enid. Chest x-ray is showing clearing. She is not requiring nebulizer treatments as often and we will change to prn. Now it is a matter of whether she can resume her ADLs safely particularly because of her previous stroke, hemiplegia, hemiwalker use, brace use and needing to be independent in the home. We will get feedback from physical and occupational therapy. Qualifiers: Pneumonia type: due to unspecified organism Lung location: lower lobe of lung Qualified Code(s): J18.1 - Lobar pneumonia, unspecified organism (2) Influenza due to influenza virus, type A, human Current Visit: Yes Status: Acute Assessment and plan: Clinically and symptomatically improving. Continuing Tamiflu. (3) UTI (urinary tract infection) Current Visit: Yes Status: Ruled-out Qualifiers: Urinary tract infection type: acute cystitis Hematuria presence: with hematuria Qualified Code(s): N30.01 - Acute cystitis with hematuria (4) CVA, old, hemiparesis Current Visit: Yes Status: Chronic Assessment and plan: She is having PT and OT to help resume her ADLs so she can be independent in her home. She still has to master stairs and endurance issues (5) Acquired immunocompromised state Current Visit: Yes Status: Chronic Assessment and plan: She is status post splenectomy and is at risk for bacteremia. One of 2 blood cultures positive for Staphylococcus hemolyticus, skin contaminant. Continue IV antibiotics. (6) Pharyngitis Current Visit: Yes Status: Resolved Assessment and plan: Culture was negative for strep Qualifiers: Pharyngitis/tonsillitis etiology: unspecified etiology Qualified Code(s): J02.9 - Acute pharyngitis, unspecified (7) Hypokalemia Current Visit: Yes Status: Acute Assessment and plan: She had mild hypokalemia, I presume from her saline IV fluid use. We will recheck her potassium today. (8) Hyperglycemia Current Visit: Yes Status: Acute Assessment and plan: She has had mild hyperglycemia, sometimes 150s. The records show she has never had a glycohemoglobin. She does not have diabetic symptoms per se, we will o rder a glycohemoglobin. I did tell her to curtail the Mountain Dew (9) DVT prophylaxis Current Visit: Yes Status: Acute Assessment and plan: Chronically she is on Pradaxa because of previous CVA. - Subjective Interval history: Patient states that she feels better today. Yesterday morning she had lightheaded episode and some therapies were not completed. She has complained that she has not been sleeping well at night (despite nortriptyline and trazodone chronically). She denies any cardiac symptoms. Her cough is very minimal now. Not productive. She is not sure the nebulizer treatments are really helping this point. (are scheduled and we will make them prn). She has not had the lightheaded / weakness episode today as she had yesterday. She fee ls like she is improving. Therapy reports that they could not work with her as much yesterday because of her lightheadedness and weakness after her shower. She is however ambulating in the hallway with them with her hemiwalker at near baseline. They have not worked with her with practicing stairs yet. - Constitutional Vitals: Temp Pulse Resp BP Pulse Ox 97.5 F L 100 15 131/84 92 04/01/19 08:00 04/01/19 08:00 04/01/19 09:00 04/01/19 08:00 04/01/19 08:00 General appearance: Present: A&O X 3, no acute distress, answers questions appropriately Exam: Patient is sitting up in a chair in no distress. She has her brace on her left leg and ready for therapy today. - Respiratory Additional comments: She has a few rare crackles in the bases as well as intermittently in the mid lung enrique posteriorly. No wheezing. No rhonchi. No cough or respiratory distress - Cardiovascular Cardiovascular exam: Present: RRR, +S1, +S2 - Extremities Exam Extremities exam: Absent: calf tenderness, pedal edema Additional comments: She is wearing a brace on her left lower extremity. Internal Medicine: Result - Labs CBC & Chem 7: 03/31/19 05:45 03/31/19 05:45 Labs: Potassium and glycohemoglobin pending today. One of the 2 blood cultures grew Staphylococcus hemolyticus, skin contaminant. Urine culture was negative. Throat culture was negative. - VTE Reasons for not Prescribing Prophylaxis: Not indicated-Anticoagulated or INR therapeutic Consult Discharge Plan - Plan Referrals: Rosa Thomas, [employer] [Primary Care Provider] -
[2019-04-01] MEDS: cefTRIAXone 1,000 MG in Water for inj. (sterile) 10 ML IVP SCH (17:55)
[2019-04-01 19:26] LABS: Estimated Average Glucose 137 mg/dl
[2019-04-01] MEDS: traZODone 50 MG TABLET PO SCH (21:01)
[2019-04-02] MEDS: Azithromycin 500 MG in D5% in Water 250 ML IVPB SCH (04:40)
[2019-04-02] MEDS: Pregabalin 50 MG CAPSULE PO SCH (09:34)
[2019-04-02] MEDS: Loratadine 10 MG TABLET PO SCH (09:34)
[2019-04-02] MEDS: Cholecalciferol (D-3) 1,000 UNIT (25MCG) TABLET PO SCH (09:34)
[2019-04-02] MEDS: *HR* Dabigatran 75 MG CAPSULE PO SCH (09:34)
[2019-04-02] MEDS: Aspirin 81 MG TAB.CHEW PO SCH (09:34)
[2019-04-02] MEDS: Multivit/Ca/Min/Fe/FA 1 TAB TABLET PO SCH (09:35)
[2019-04-02 10:04] VITALS: BP 113/68
[2019-04-02] MEDS: Acetaminophen 325 MG TABLET PO PRN (10:28)
--- NOTE | 2019-04-02 12:08 | Discharge Summary ---
Orders not resulted at time of discharge: Pending orders 03/28/19 23:48 Culture,Blood [] Stat Date of Encounter: 04/02/19 Time of Encounter: 12:40 - Discharge Diagnosis (1) Influenza due to influenza virus, type A, human Priority: Primary Status: Acute Comments: She tested positive for influenza A on the respiratory panel she was started on Tamiflu she did have bilateral infiltrates. She had coughing wheezing shortness of breath this did improve with Rocephin and Zithromax Tamiflu and duo nebs. She was sent home to finish out the course of the Zithromax and Tamiflu. She was progressing met her baseline she had significant with the influenza A but physical therapy evaluated her today felt she was back at her baseline her friend who is also physical therapist Keara came back that would be okay for her to go home we will arrange for home health to come in and hopefully help strengthen her back to her baseline again. (2) Bilateral pneumonia Priority: Secondary Status: Acute Comments: From the influenza a she was on Rocephin and Zithromax her white count remained normal she was afebrile she was discharged home to finish the Tamiflu and the Zithromax Qualifiers: Pneumonia type: due to influenza A virus Lung location: lower lobe of lung Qualified Code(s): J11.00 - Influenza due to unidentified influenza virus with unspecified type of pneumonia (3) CVA, old, hemiparesis Priority: Secondary Status: Chronic Comments: This complicates her course as she had a hard time recovering from the myositis of the influenza a. She did see physical therapy occupational therapy she definitely got stronger she was able to ambulate with her very abnormal gait with the hemiwalker. We will send her home with home health care as she is still deconditioned. 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 Castillo is a 48 year old female With a very significant history of CVA with the left him in paresis came into the emergency room after she was feeling weak unable to ambulate and get around. She was found to have bilateral infiltrates pneumonia is on chest x-ray she was [place] treated for community-acquired pneumonia with Rocephin and Zithromax her respiratory panel came back positive for influenza a she was started on Tamiflu as well her white count was normal at discharge she had been afebrile. She was feeling much better and was discharged home on Zithromax and Tamiflu she did have a significant weakening and decondition with this complicated by her CVA physical therapy occupational therapy saw her she did progress back to closer baseline when they felt she was able to go home with home health care that was arranged. She had some hypokalemia with dehydration that resolved with treatment. Her sugars were elevated hemoglobin A1c was 6.4 will continue to follow this as an outpatient. She did have one blood culture that was positive one blood culture that was negative it was felt to be a skin contaminant on the first positive. - Time Spent with Patient Total time spent providing and/or coordinating discharge services: - Discharge Medications Prescriptions: New Escitalopram [Lexapro] 20 mg PO DAILY tablet Saline Nasal [place] [[place] Nasal [place]] 1 spray NS AD PRN bottle PRN Reason: Congestion GuaiFENesin/Dextromethorphan [Robitussin/Dm] 5 ml PO Q4HR PRN udc PRN Reason: Cough Oseltamivir [Tamiflu] 75 mg PO BID #4 capsule Acetaminophen [Tylenol] 650 mg PO Q4H PRN tablet PRN Reason: Pain/Fever greater than 100.5 Azithromycin [Zithromax] 250 mg PO DAILY #2 tablet Continued Esomeprazole Magnesium [Nexium] 20 mg PO DAILY Multivitamin [Multivitamins] 1 tab PO DAILY Cholecalciferol (Vitamin D3) [Vitamin D3] 1,000 unit PO DAILY Calc/D3/Mag/Zn/Francis/[place] [Calcium 600 mg Plus Vit D Tab] 1 tab PO DAILY Nortriptyline HCl 50 mg PO DAILY Albuterol Sulfate [Proair Hfa] 2 puff IH Q4H PRN PRN Reason: Shortness Of Breath Loratadine [Claritin] 10 mg PO DAILY TraZODone 50 mg PO HS Pregabalin [Lyrica] 200 mg PO BID Levothyroxine [Synthroid] 112 mcg PO DAILY Buspirone HCl [Buspar] 10 mg PO TID PRN PRN Reason: Anxiety Dabigatran [Pradaxa] 150 mg PO BID Aspirin 81 mg PO DAILY Atorvastatin [Lipitor] 40 mg PO HS Home Medications: Albuterol Sulfate [Proair Hfa] 2 puff IH Q4H PRN 05/29/16 [History] Buspirone HCl [Buspar] 10 mg PO TID PRN 05/29/16 [History] Calc/D3/Mag/Zn/Francis/[place] [Calcium 600 mg Plus Vit D Tab] 1 tab PO DAILY 05/29/16 [History] Cholecalciferol (Vitamin D3) [Vitamin D3] 1,000 unit PO DAILY 05/29/16 [History] Levothyroxine [Synthroid] 112 mcg PO DAILY 05/29/16 [History] Loratadine [Claritin] 10 mg PO DAILY 05/29/16 [History] Multivitamin [Multivitamins] 1 tab PO DAILY 05/29/16 [History] Nortriptyline HCl 50 mg PO DAILY 05/29/16 [History] Pregabalin [Lyrica] 200 mg PO BID 05/29/16 [History] TraZODone 50 mg PO HS 05/29/16 [History] Aspirin 81 mg PO DAILY 06/14/16 [History] Atorvastatin [Lipitor] 40 mg PO HS 06/14/16 [History] Dabigatran [Pradaxa] 150 mg PO BID 06/14/16 [History] Esomeprazole Magnesium [Nexium] 20 mg PO DAILY 08/31/16 [History] Acetaminophen [Tylenol] 650 mg PO Q4H PRN tablet 04/02/19 [Rx] Azithromycin [Zithromax] 250 mg PO DAILY #2 tablet 04/02/19 [Rx] Escitalopram [Lexapro] 20 mg PO DAILY tablet 04/02/19 [Rx] GuaiFENesin/Dextromethorphan [Robitussin/Dm] 5 ml PO Q4HR PRN udc 04/02/19 [Rx] Oseltamivir [Tamiflu] 75 mg PO BID #4 capsule 04/02/19 [Rx] Saline Nasal [place] [[place] Nasal [place]] 1 spray NS AD PRN bottle 04/02/19 [Rx] Allergies/Adverse Reactions: Allergy/AdvReac Type Severity Reaction Status Date / Time acetaminophen [From Percocet] Allergy See Verified 03/29/19 00:34 Comments latex Allergy See Verified 03/29/19 00:34 Comments oxycodone [From Percocet] Allergy See Verified 03/29/19 00:34 Comments Penicillins Allergy Itching Verified 03/29/19 00:34 adhesive tape AdvReac Rash Verified 03/29/19 04:11 Date of admission: 03/30/19 06:59 Primary care physician: Rosa Thomas CNP Consults: 03/29/19 14:32 Consult to Occupational Therapy [CONS] Routine Comment: Evaluate, develop and implement POC Reason for Consult: History chronic kidney plegia from CVA. Now having increased weakness, more difficulties with ambulation and ADLs. Does patient have active BEDREST order?: No Is patient medically & hemodynamically stable?: Yes Patient assessed for mobility or mobilized this visit?: No Consult to Physical Therapy [CONS] Routine Comment: Evaluate, develop and implement POC Reason for Consult: Patient has a history of left hemiplegia from CVA. Now having increased weakness, ambulation issues and generalized trouble with ADLs secondary to her infection Does patient have active BEDREST order?: No Is patient medically & hemodynamically stable?: Yes Patient assessed for mobility or mobilized this visit?: No - Constitutional Vitals: Temp Pulse Resp BP Pulse Ox 98.1 F 94 14 113/68 98 04/02/19 08:26 04/02/19 08:26 04/02/19 08:26 04/02/19 10:03 04/02/19 08:26 General appearance: Present: A&O X 3, no acute distress, answers questions appropriately - Head Head exam: Absent: atraumatic (s/p cranitomy scar well healed) - Respiratory Respiratory exam: Present: rhonchi (rll). Absent: accessory muscle use, respiratory distress, wheezes - Cardiovascular Cardiovascular exam: Present: RRR, +S1, +S2. Absent: systolic murmur - GI/Abdominal GI/Abdominal exam: Present: normal bowel sounds, soft, no peritoneal signs. Absent: distended, guarding, mass, rebound, tenderness - Extremities Exam Extremities exam: Present: normal capillary refill. Absent: cyanotic, mottling, pedal edema - Neurological Exam Neurological exam: Absent: normal gait, strengths equal and symetr throughout (left hemiplegia) - Skin Skin exam: Present: dry, warm. Absent: rash - Patient Status Disposition: Home Health Service Condition: Good Functional capacity at discharge: uses cane/walker Overall status at discharge: patient is progressing back to baseline - Discharge Instructions Instructions: Pneumonia (DC) Follow Up With: Rosa Thomas CNP [Primary Care Provider] - 04/08/19 8:00 am - Diet and Activity Activity: ambulate only with your walker Diet: advance to your usual diet - VTE Reasons for not Prescribing Prophylaxis: Not indicated-Anticoagulated or INR therapeutic
--- NOTE | 2019-04-02 12:48 | Physician Discharge Referral ---
Home Health/Hosp Referral Info Transfer to: Home Health Provider in Charge Post Discharge: PCP - Diagnosis (1) Influenza due to influenza virus, type A, human Priority: Primary Status: Acute (2) Bilateral pneumonia Priority: Secondary Status: Acute (3) CVA, old, hemiparesis Priority: Secondary Status: Chronic (4) DVT prophylaxis Priority: Secondary Status: Acute (5) Positive blood culture Priority: Secondary Status: Acute (6) Hypokalemia Priority: Secondary Status: Acute (7) Hyperglycemia Priority: Secondary Status: Acute - Respiratory Orders Smoking Cessation: Smoking cessation has been advised. For more information, call the [place] Tobacco Quit Line at 3-500-HNYH-NOW. - Diet/Nutrition Diet/Nutrition Orders: Regular - Activity Activity Orders: Walker - Services Needed Following services are medically necessary services: Nursing, Home Health Aide, Physical Therapy, Occupational Therapy - Transfer Medications Prescriptions: Oseltamivir [Tamiflu] 75 mg PO BID #4 capsule Azithromycin [Zithromax] 250 mg PO DAILY #2 tablet Home Medications: Albuterol Sulfate [Proair Hfa] 2 puff IH Q4H PRN 05/29/16 [History] Buspirone HCl [Buspar] 10 mg PO TID PRN 05/29/16 [History] Calc/D3/Mag/Zn/Francis/[place] [Calcium 600 mg Plus Vit D Tab] 1 tab PO DAILY 05/29/16 [History] Cholecalciferol (Vitamin D3) [Vitamin D3] 1,000 unit PO DAILY 05/29/16 [History] Levothyroxine [Synthroid] 112 mcg PO DAILY 05/29/16 [History] Loratadine [Claritin] 10 mg PO DAILY 05/29/16 [History] Multivitamin [Multivitamins] 1 tab PO DAILY 05/29/16 [History] Nortriptyline HCl 50 mg PO DAILY 05/29/16 [History] Pregabalin [Lyrica] 200 mg PO BID 05/29/16 [History] TraZODone 50 mg PO HS 05/29/16 [History] Aspirin 81 mg PO DAILY 06/14/16 [History] Atorvastatin [Lipitor] 40 mg PO HS 06/14/16 [History] Dabigatran [Pradaxa] 150 mg PO BID 06/14/16 [History] Esomeprazole Magnesium [Nexium] 20 mg PO DAILY 08/31/16 [History] Acetaminophen [Tylenol] 650 mg PO Q4H PRN tablet 04/02/19 [Rx] Azithromycin [Zithromax] 250 mg PO DAILY #2 tablet 04/02/19 [Rx] Escitalopram [Lexapro] 20 mg PO DAILY tablet 04/02/19 [Rx] GuaiFENesin/Dextromethorphan [Robitussin/Dm] 5 ml PO Q4HR PRN udc 04/02/19 [Rx] Oseltamivir [Tamiflu] 75 mg PO BID #4 capsule 04/02/19 [Rx] Saline Nasal [place] [[place] Nasal [place]] 1 spray NS AD PRN bottle 04/02/19 [Rx] Allergies/Adverse Reactions: Allergy/AdvReac Type Severity Reaction Status Date / Time acetaminophen [From Percocet] Allergy See Verified 03/29/19 00:34 Comments latex Allergy See Verified 03/29/19 00:34 Comments oxycodone [From Percocet] Allergy See Verified 03/29/19 00:34 Comments Penicillins Allergy Itching Verified 03/29/19 00:34 adhesive tape AdvReac Rash Verified 03/29/19 04:11 Certification: Further, I certify that my clinical findings support that this patient is homebound (i.e. absences from home require considerable and taxing effort and are for medical reasons or quaker services or infrequently or short duration when for other reasons) because: Homebound Reason: Patient requires assistance of a person or device to safely leave home (hemiwalker with left hemiplegia), Leaving home requires considerable and taxing effort due to condition (needs ride canot drive falls risk) Attestation: My signature below is to certify that this patient is under my care and that I, or nurse practitioner, or a physician's traffic assistant working with me, has a [id number] encounter with this patient.
--- NOTE | 2019-04-05 10:20 | Electrocardiograph Report ---
[address] [address] Test Date: 2019-03-28 Pat Name: Yani Castillo Department: 2000 Room: 112 Gender: F Transition Mgr Rn: KENROY : 1970 Requested By: Danisha Palomo Order Number: [id number] Reading MD: Ellen Hawthorne Measurements Intervals Jones Rate: 124 P: 60 ID: [id number] QRS: 57 QRSD: 107 T: 36 QT: 337 QTc: 411 Interpretive Statements SINUS TACHYCARDIA WITH OCCASIONAL SUPRAVENTRICULAR PREMATURE COMPLEXES INCOMPLETE RIGHT BUNDLE BRANCH BLOCK ABNORMAL RHYTHM ECG Electronically Signed On 04-05-2019 10:18:44 EDT by Ellen Hawthorne
== END 2019-04-02 15:15 | disposition home health service (06) | DRG 194 ==
LOC: INPGRE 23:12 → EMEROOGRE 23:12 → INPGRE 03-29 03:42
PROVIDERS: ADMIT Family Medicine; ATTEND Family Medicine